=== PATIENT | female | born 2000 | race Caucasian/White ===

== ENCOUNTER 2021-03-26 18:04 | Emergency (ER) | payer BC ==
[~2021-03-26] VITALS: Ht 160 cm; Wt 60.0 kg
--- NOTE | 2021-03-26 18:32 | PHYS DOC ---
General Adult EDM: Chief Complaint: SUICDAL IDEATION HPI: HPI: Patient is a 20 year old female who presents with today she attempted suicide by putting a plastic bag over her head. She states that her parents found her. She states that she did not pass out but was feeling very nauseated. She states her last menstrual period was 2 months ago when she is taken 2 test and they were positive. She states that she is no longer with the father of the baby but the family has been there more for her lately then her parents are. She states her parents for the last 20 years have always treated her like an infant. She states that she does not think that living would do anybody any good. She states that everyone is out to hurt her or just drop her like she is nothing. She states that she "hates it here and does not want to be in this world anymore." She states that she did do some superficial cuts on her wrist bilaterally yesterday. She states her vaccines are all up-to-date. She denies taking any medications to overdose or any alcohol use. She states that she is taking Zoloft 20 mg. She states that she is seeing a new therapist at the [facility] by [place] but does not know the name of the facility. She states she does not much care for that therapist. He has a history of many suicidal attempts such as overdose, cutting. She states " it must be impossible for me to because I am not doing something right". Denies any pain at this time. Denies chest pain, shortness of breath, dizziness, syncope, headache, abdominal pain, nausea, vomiting, diarrhea, vaginal bleeding, back pain, urinary symptoms, numbness or tingling or throat pain. Review of Systems: Review of Systems: Constitutional: Denies fever or chills. [] Eyes: Denies change in visual acuity. [] HENT: Denies nasal congestion or sore throat. [] Respiratory: Denies cough or shortness of breath. [] Cardiovascular: Denies chest pain or edema. [] GI: Denies abdominal pain, nausea, vomiting, bloody stools or diarrhea. [] : Denies dysuria. [] Musculoskeletal: Denies back pain or joint pain. [] Integument: Denies rash. [] Neurologic: Denies headache, focal weakness or sensory changes. [] Endocrine: Denies polyuria or polydipsia. [] Lymphatic: Denies swollen glands. [] Psychiatric: + depression or +anxiety. + Suicidal attempt, + suicide ideation [] Heart Score: C/O Chest Pain: No Physical Exam: PE: Constitutional: Well developed, well nourished, no acute distress, non-toxic appearance. [] HENT: Normocephalic, atraumatic, bilateral external ears normal, oropharynx moist, no oral exudates, nose normal. [] Eyes: PERRLA, EOMI, conjunctiva normal, no discharge. [] Neck: Normal range of motion, no tenderness, supple, no stridor. [] Cardiovascular:Heart rate regular rhythm, no murmur [] Lungs & Thorax: Bilateral breath sounds clear to auscultation [] Abdomen: Bowel sounds normal, soft, no tenderness, no masses, no pulsatile masses. [] Skin: Warm, dry, no erythema, no rash. [] Back: No tenderness, no CVA tenderness. [] Extremities: No tenderness, no cyanosis, no clubbing, ROM intact, no edema. [] Neurologic: Alert and oriented X 3, normal motor function, normal sensory function, no focal deficits noted. [] Psychologic: Affect normal, judgement normal, mood normal. Depressed. Crying. [] EKG: EKG: [] Radiology/Procedures: Radiology/Procedures: [] Impression: [facility] [address] [place], [place] [id number] IMAGING REPORT Signed PATIENT: MARCOS SANDRA AACCOUNT: [id number] : 2000 LOCATION: ER AGE: 20 SEX: F EXAM STATUS: REG ER ORD. PHYSICIAN: ERA SMITH APRN REASON: positive , tried to suffocate self today PROCEDURE: OB < 14 WKS Exam: Ultrasound OB less than 14 week Indication: Positive test Technique: Real-time grayscale and color Doppler images of the pelvis were obtained by the department stage technician. Comparisons: None FINDINGS: Uterus measures 7.3 x 5.5 x 3.6 cm. Within the endometrium there is a gestational sac with internal yolk sac and pole. heart rate is measured at 113 bpm. [place]-rump length measured at 0.66 cm corresponding to 6 weeks 4 days gestation. Right ovary measures 3.1 x 2.0 x 1.5 cm. Left ovary measures 2.7 x 2.5 x 1.9 cm. Vascular flow identified in the ovaries bilaterally. No free fluid identified and pelvis. IMPRESSION: 1. Single live intrauterine gestation measuring 6 weeks 4 days by current ultrasound. 2. Dedicated survey is recommended at 18-20 weeks gestation. Electronically signed by: Ben Way MD (03/26/2021 9:28 PM) [facility] DICTATED and SIGNED BY: BEN WAY MD DATE: 03/26/[id number] 0 Course & Med Decision Making: Course & Med Decision Making Pertinent Labs and Imaging studies reviewed. (See chart for details) See HPI. Patient is on one-to-one observation. Speaks in full clear sentences. Ambulatory with a steady gait. Skin pink warm and dry. Small superficial cuts to wrist bilaterally. No bleeding. No guzman on her throat or bruising. Lungs are clear to all station all lobes. Vital signs within normal limits. PERRLA. Alert and oriented x4. Patient is medically cleared. I have talked to Miracle Cerna from PAT team. She is on her way to see the patient. Patient denied any suicidal thoughts or suicidal ideation to PAT team. Miracle with PAT team states that the patient has a safe place to go and the patient can be discharged to a friend's house that patient met at [facility]. I feel that this is unsafe as the patient tried to kill herself with a bag over her head today and was found by her parents. Patient's parents stated that her dad walked into the patient's room and saw her laying in bed but the blankets were pulled up over her head and he thought it was some kind of a " beauty thing". He then went downstairs and was picking up trash and talk to the patient's mother who states there is no such beauty thing like that. They then went back upstairs and pulled down the covers and found her laying in bed with a plastic bag over her head trying to kill herself. Me and Dr. Nguyen both agree that the patient is not safe to go home or be discharged. Patient is going to be admitted to a in patient facility for stabilization. [facility] does not have a bed at this time and they may have a bed in the morning. We are still awaiting the patient's rapid Covid result. Miracle states that she is sending the patient's paperwork to [place] so that they have it. 0100: Patient signed over to Dr. Nguyen. [] Blake Disclaimer: Blake Disclaimer: This electronic medical record was generated, in whole or in part, using a voice recognition dictation system. Departure Departure Impression: Primary Impression: Suicide attempt Additional Impression: Suicidal ideation ERA SMITH TECHNOLOGY ASSISTANT Mar 26, 2021 18:32
[2021-03-26 19:01] LABS: BASO % 0 % (0-3); EOS % 0 % (0-3); HEMATOCRIT 44.6 % (36.0-47.0); HEMOGLOBIN 14.3 g/dL (12.0-15.5); LYMPH # 1.9 x10^3/uL (1.0-4.8); LYMPH % 17 % (24-48); MEAN CORPUSCULAR HEMOGLOBIN 29 pg (25-35); MEAN CORPUSCULAR HGB CONC 32 g/dL (31-37); MEAN CORPUSCULAR VOLUME 90 fL (79-100); MONO # 0.7 x10^3/uL (0.0-1.1); MONO % 6 % (0-9); NEUT # 8.6 x10^3/uL (1.8-7.7); NEUT % 77 % (31-73); PLATELET COUNT 230 x10^3/uL (140-400); RED BLOOD COUNT 4.96 x10^6/uL (3.50-5.40); RED CELL DISTRIBUTION WIDTH 13.7 % (11.5-14.5); WHITE BLOOD COUNT 11.3 x10^3/uL (4.0-11.0)
[2021-03-26 19:12] LABS: CALCIUM 8.1 mg/dL (8.5-10.1); CREATININE 0.5 mg/dL (0.6-1.0); GFR 157.3; POTASSIUM 3.8 mmol/L (3.5-5.1)
[2021-03-26 19:21] LABS: ACETAMIN < 2 mcg/ml (10-30); ETHANOL < 10 mg/dL (0-10); SALIC 0.7 mg/dL (2.8-20.0)
[2021-03-26 20:41] LABS: BARBITURATES NEG (NEG); BENZODIAZEPINES NEG (NEG); CANNABINOIDS POS (NEG); COCAINE NEG (NEG); METHADONE NEG (NEG); OPIATES NEG (NEG); PHENCYCLIDINE NEG (NEG)
[2021-03-26 20:45] LABS: AMPHETAMINE/METHAMPHETAMINE NEG (NEG)
--- NOTE | 2021-03-26 21:30 | RAD ---
Exam: Ultrasound OB less than 14 week Indication: Positive test Technique: Real-time grayscale and color Doppler images of the pelvis were obtained by the department city maintenance manager. Comparisons: None FINDINGS: Uterus measures 7.3 x 5.5 x 3.6 cm. Within the endometrium there is a gestational sac with internal y olk sac and pole. heart rate is measured at 113 bpm. [place]-rump length measured at 0.66 c m corresponding to 6 weeks 4 days gestation. Right ovary measures 3.1 x 2.0 x 1.5 cm. Left ovary measures 2.7 x 2.5 x 1.9 cm. Vascular flow identified in the ovaries bilaterally. No free fluid identified and pelvis. IMPRESSION: 1. Single live intrauterine gestation measuring 6 weeks 4 days by current ultrasound. 2. Dedicated survey is recommended at 18-20 weeks gestation. Electronically signed by: Ben Christie MD (03/26/2021 9:28 PM) ALEKSANDRA
[2021-03-27] MEDS ORDERED: FLUoxetine HCL 20 MG CAPSULE PO SCH (12:00)
[2021-03-27 15:11] VITALS: BP 110/56
[2021-03-28] MEDS ORDERED: FLUoxetine HCL 20 MG CAPSULE PO SCH (09:00)
--- NOTE | 2021-03-29 15:07 | NUR ---
IP: Attempted to contact pt concerning covid results. Phone will not accept calls.
== END 2021-03-27 15:47 ==
LOC: ER 18:04
DX: O26.891 Other specified pregnancy related conditions, first trimester (principal); R45.851 Suicidal ideations; Z20.822 Contact with and (suspected) exposure to COVID-19; Z91.51 Personal history of suicidal behavior; Z3A.01 Less than 8 weeks gestation of pregnancy
CPT/HCPCS: 36415; 76801; 80048; 80307; 80329; 81025; 84702; 85025; 86850; 86900; 86901; 87426; 99285; G0480; U0003; U0005